=== PATIENT | male | born 1975 ===

== ENCOUNTER 2023-02-03 15:01 | Outpatient (CLI) | payer OTHER, SELFPAY | END 2023-02-03 15:02 | disposition home or self-care (01) | PROVIDERS: Visit Provider Internal Medicine | DX: J18.9 Pneumonia, unspecified organism (principal); R05.9 Cough, unspecified | CPT/HCPCS: 80053; 86140 ==

== ENCOUNTER 2023-02-05 15:48 | Outpatient (CLI) | payer OTHER, SELFPAY ==
--- NOTE | 2023-02-05 16:00 | CRLHL7_ITS ---
For Patients: As a result of the Century Cures Act, medical imaging exams and procedure reports are released immediately into your electronic medical record. You may view this report before your referring provider. If you have questions, please contact your health care provider. CLINICAL INFORMATION: Pneumonia. TECHNIQUE: Contrast-enhanced CT of the chest was obtained. Coronal and sagittal reformatted images were obtained. Contrast: 75 mL of Isovue 370 intravenous contrast was injected uneventfully prior to image acquisition. Radiation Dose Estimate (Total Exam DLP): 642 mGy-cm. COMPARISON: Chest radiograph 02/03/2023. FINDINGS: Chest: Thyroid: Unremarkable Lungs: Dense consolidated airspace opacity in the right upper lobe along the major fissure with involvement of the right perihilar region, most consistent with infectious and/or inflammatory process. No pleural effusions. Heart/Pericardium: Heart normal in size. No pericardial effusion. Thoracic aorta normal in caliber. Lymph Nodes: No significant axillary, mediastinal, or hilar lymphadenopathy. Upper Abdomen: No acute findings in the visualized portions. Musculoskeletal: Healed fractures involving left 7th and 8th ribs. IMPRESSION: 1. Dense consolidated airspace opacity in the right upper lobe most likely representing infectious and/or inflammatory process. Recommend repeat chest CT in 3 months to ensure improvement/resolution. Please note that all CT scans at this facility use dose modulation, iterative reconstruction, and/or weight-based dosing when appropriate to reduce radiation dose to as low as reasonably achievable. Dictated by Steve Ramey MD @ 02/09/2023 7:05:44 AM (Electronically Signed)
== END 2023-02-05 15:49 | disposition home or self-care (01) ==
LOC: CT 15:49
PROVIDERS: PCP Internal Medicine; Visit Provider Internal Medicine
DX: J18.9 Pneumonia, unspecified organism (principal)
CPT/HCPCS: 71260; Q9967